=== PATIENT | male | born 1985 | race Asian ===

== ENCOUNTER 2024-12-30 14:25 | Emergency (ER) | payer OTHER ==
[~2024-12-30] VITALS: Ht 167.6 cm; Wt 65.9 kg
[2024-12-30 14:39] VITALS: TEMP 97.6
--- NOTE | 2024-12-30 14:44 | Physician Documentation ---
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 While in the he was of walking on a kashia bed and fell 4 ft with a 55lb ruck sack on injured his hip. a he never received any imaging at thetime. denies acute injury reports pain with ambulation Day of Onset: December 30, 2024 Medication Reconciliation Allergies: Coded Allergies: No Known Allergies (Unverified , 12/30/24) Physical Exam Vital Signs: Temperature: 97.6, Heart Rate: 100, Respiratory Rate: 15, BP: 157/98, Pulse Oximetry: 98, Weight: 65.900 Physical Exam General: Alert, no apparent distress. HEENT: PERRL, EOMI, no injection, moist mucous membranes. Neck: Full range of motion. Extremities: Normal range of motion, no deformity. Psychiatric: Normal mood and affect. Skin: Normal color, warm and dry. No edema, no ecchymosis. Progress Results/Orders Results/Orders Orders - MATHIEU RICKS [employer] Hip Unilateral 2 Views (12/30/24 14:45) Completed Orders - MATHEIU RICKS [employer] Hip Unilateral 2 Views (12/30/24 14:45) Ketorolac Trometh 30mg/Ml Vial (Toradol (12/30/24 15:10) Electrocardiogram (12/30/24 14:39) Medications Received in ER Medications (Trade) Dose Ordered Sig/Edward Route PRN Reason Start Time Stop Time Status Last Admin Dose Admin (Toradol inj. 30mg/ml) 30 mg ONCE ONCE IM 12/30/24 15:10 12/30/24 15:11 DC 12/30/24 15:21 30 MG Vital Signs 12/30/24 12/30/24 12/30/24 12/30/24 14:39 15:21 16:11 16:12 Temp 97.6 Pulse 100 100 100 Resp 15 15 15 15 B/P (MAP) 157/98 157/98 (117) 157/98 Pulse Ox 98 98 98 12/30/24 16:14 Resp 15 Medical Decision Making Findings Showed no signs of abnormality on his right hip.. I suspect that he has some potential internal derangement of the right hip joint which is attributed to his pain. Attended physical therapy and ibuprofen and to follow up in the outpatient setting for referral to go to physical therapy. Differential Dx:Considerations: Include: Avascular necrosis, Arthritis, Arthritis-Rheumatoid, Arthritis-Septic, Bursitis, Contusion, Dislocation, DJD, Fracture-femur, Fracture-hip, Fracture-open, Fracture-pelvis, Gout, Hernia, Fzqe-Cqdkk-kzisdus dz., Neurovascular injury, Slip capital femoral epip, Sprain, Transient synovitis, Other Departure Disposition: HOME / SELF CARE / HOMELESS Impression: Primary Impression: Hip pain Condition: Stable Referrals: NO PRIMARY CARE PROVIDER (PCP) Signature Scribe Signature: d Attestation: The note accurately reflects work and decisions made by me.Mathieu Watts NP 12/30/24 16:05 MATHIEU RICKS NP December 30, 2024 14:44
--- NOTE | 2024-12-30 15:14 | RADIOLOGY REPORT ---
CLINICAL INDICATION: RIGHT HIP PAIN TECHNIQUE: 1 radiographic views of the pelvis and 2 views of the right hip were obtained. Comparison: None FINDINGS/IMPRESSION: There is no evidence of acute fracture or dislocation. The visualized joint space is well maintained. The alignment is anatomical. There is no radiopaque foreign body.
[2024-12-30] MEDS: ketorolac trometh 30MG/ML vial 30 MG/ML VIAL IM ONE (15:21)
--- NOTE | 2024-12-30 15:30 | ELECTROCARDIOGRAPH REPORT ---
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 Prosper Olivera Measurements Intervals Elliott Rate: 97 P: 62 RI: 154 QRS: -21 QRSD: 140 T: 29 QT: 380 QTc: 483 Interpretive Statements Sinus rhythm Right bundle branch block Inferior infarct, acute Lateral leads are also involved Electronically Signed On 01-06-2025 21:44:[address] Prosper Olivera Please click the below link to view image of tracing.
[2024-12-30 16:12] VITALS: BP 157/98; PULSE 100; O2SAT 98
[2024-12-30 16:14] VITALS: RESP 15
== END 2024-12-30 16:15 | disposition home or self-care (01) ==
LOC: ER 14:26
DX: M25.551 Pain in right hip (principal); R94.31 Abnormal electrocardiogram [ECG] [EKG]; W06.XXXA Fall from bed, initial encounter; Y93.89 Activity, other specified; Y92.89 Other specified places as the place of occurrence of the external cause; Y99.8 Other external cause status
CPT/HCPCS: 73502; 93005; 96372; 99284; J1885